=== PATIENT | female | born 1985 | race Asian ===

== ENCOUNTER 2020-08-23 23:46 | Emergency (ER) | payer MEDICAID ==
[~2020-08-23] VITALS: Ht 180.3 cm; Wt 188.7 kg
[2020-08-24] MEDS ORDERED: LABETALOL 5MG/ML, 20ML IVPush ONE
[2020-08-24] MEDS ORDERED: ENALAPRILAT 1.25 MG/ML, 2ML IV ONE
[2020-08-24] MEDS ORDERED: SODIUM CHLORIDE FLUSH 10ML SYR IVF ONE
[2020-08-24 00:27] LABS: BASOPHILS % (AUTO) 1 % (0-1); EOSINOPHILS % (AUTO) 2 % (1-7); LYMPHOCYTES % (AUTO) 33 % (22-44); MD NO; MEAN CORPUSCULAR HEMOGLOBIN 23.8 pg (27.0-34.8); MEAN CORPUSCULAR HGB CONC 31.4 g/dL (32.4-35.8); MEAN PLATELET VOLUME 7.8 fL (7.4-10.4); MONOCYTES % (AUTO) 6 % (2-9); NEUTROPHILS % (AUTO) 59 % (42-75); PLATELET COUNT 272 x10^3/uL (130-400); RED BLOOD COUNT 4.86 x10^6/uL (3.82-5.3)
[2020-08-24] MEDS ORDERED: ENALAPRILAT 1.25 MG/ML, 1ML ONE (00:27)
[2020-08-24] MEDS ORDERED: NITROGLYCERIN OINT 2%, 1GM TP ONE ×2 (00:27)
[2020-08-24] MEDS ORDERED: LABETALOL 5MG/ML, 20ML ONE (00:27)
[2020-08-24 00:29] LABS: ALANINE AMINOTRANSFERASE 26 U/L (12-78); ALBUMIN 3.3 g/dL (3.4-5.0); ANION GAP 6 mmol/L (5-15); CALCIUM 8.5 mg/dL (8.5-10.1); CHLORIDE 110 mmol/L (98-107); CREATININE 0.96 mg/dL (0.55-1.02)
[2020-08-24 00:34] LABS: ALKALINE PHOSPHATASE 70 U/L (45-117); BILIRUBIN,TOTAL 0.4 mg/dL (0.2-1.0); TOTAL PROTEIN 7.4 g/dL (6.4-8.2)
--- NOTE | 2020-08-24 00:38 | NUR ---
MEDICATED PER MAR
[2020-08-24] MEDS ORDERED: FUROSEMIDE 40 MG/4 ML IV ONE (01:00)
[2020-08-24] MEDS ORDERED: FUROSEMIDE 40 MG/4 ML ONE (01:13)
--- NOTE | 2020-08-24 01:48 | NUR ---
Patient/Caregiver given discharge instructions and they have confirmed that they understand the instructions. Patient ambulatory with steady gait.
[2020-08-24 02:01] VITALS: BP 160/101
== END 2020-08-24 02:03 | disposition home or self-care (01) ==
LOC: ED 08-24 00:23
DX: I11.0 Hypertensive heart disease with heart failure (principal); I50.9 Heart failure, unspecified; R06.00 Dyspnea, unspecified; R94.31 Abnormal electrocardiogram [ECG] [EKG]; F17.210 Nicotine dependence, cigarettes, uncomplicated
CPT/HCPCS: 36415; 71045; 80053; 83880; 84484; 84703; 85025; 93005; 96374; 96375; 99285; 99406; J1940

== ENCOUNTER 2020-10-13 07:35 | Inpatient (IN) | payer MEDICAID ==
[~2020-10-13] VITALS: Ht 177.8 cm; Wt 190.7 kg
--- NOTE | 2020-10-13 08:10 | NUR ---
PT PRESENTS TO ED WITH C/O SOB SINCE YESTERDAY AFTERNOON. PT DENIES CHEST PAIN BUT STATES THEY "FEEL HEAVY". PT A&O, RESPS EVEN AND SHALLOW, NADN. ERPA AT BEDSIDE FOR INITAL EVAL/ASSESSMENT.
--- NOTE | 2020-10-13 08:16 | NUR ---
XR AT BEDSIDE
[2020-10-13] MEDS ORDERED: SACUBITRIL/VALSARTAN 24MG-26MG TAB PO STA (08:30)
[2020-10-13 08:31] LABS: ALANINE AMINOTRANSFERASE 31 U/L (12-78); ANION GAP 5 mmol/L (5-15); BASOPHILS % (AUTO) 1 % (0-1); CALCIUM 8.8 mg/dL (8.5-10.1); CHLORIDE 108 mmol/L (98-107); CREATININE 0.94 mg/dL (0.55-1.02); EOSINOPHILS % (AUTO) 2 % (1-7); LYMPHOCYTES % (AUTO) 33 % (22-44); MEAN CORPUSCULAR HEMOGLOBIN 23.5 pg (27.0-34.8); MEAN CORPUSCULAR HGB CONC 31.2 g/dL (32.4-35.8); MEAN PLATELET VOLUME 8.1 fL (7.4-10.4); MONOCYTES % (AUTO) 7 % (2-9); NEUTROPHILS % (AUTO) 58 % (42-75); PLATELET COUNT 267 x10^3/uL (130-400); RED BLOOD COUNT 4.77 x10^6/uL (3.82-5.3); RED CELL DISTRIBUTION WIDTH 18.7 % (9.6-15.2)
[2020-10-13 08:33] LABS: ALKALINE PHOSPHATASE 67 U/L (45-117); BILIRUBIN,TOTAL 0.6 mg/dL (0.2-1.0); TROPONIN I 0.041 ng/mL (0.000-0.045)
--- NOTE | 2020-10-13 08:52 | NUR ---
pt medicated per order, tolerated well. manual bp taken, 210/130. clonidine patch applied to right upper arm. pt a&o, resps even and shallow, nadn.
[2020-10-13] MEDS ORDERED: cloniDINE 0.1MG PATCH TD SCH (09:00)
--- NOTE | 2020-10-13 09:34 | NUR ---
pt sleeping in bed, resps even, shallow, and labored, nadn.
[2020-10-13] MEDS ORDERED: hydrALAzine 20 MG/ML, 1ML ONE ×2 (10:28→11:46)
[2020-10-13] MEDS ORDERED: SODIUM CHLORIDE FLUSH 10ML SYR IVF ONE (10:30)
[2020-10-13] MEDS ORDERED: FUROSEMIDE 40 MG/4 ML IV ONE (10:30)
[2020-10-13] MEDS ORDERED: hydrALAzine 20 MG/ML, 1ML IV ONE ×2 (10:30→13:00)
--- NOTE | 2020-10-13 10:34 | NUR ---
TASK RN: PIV STARTED, PT MEDICATED PER EMAR. RESTING ON GURNEY W/ CALL LIGHT IN REACH AND FAMILY AT BEDSIDE. RESP EVEN AND UNLABORED, MUNIRA.
[2020-10-13] MEDS ORDERED: FUROSEMIDE 40 MG/4 ML ONE (10:37)
--- NOTE | 2020-10-13 10:47 | NUR ---
PT AMBULATORY TO BATHROOM WITH STEADY GAIT
--- NOTE | 2020-10-13 11:38 | NUR ---
Pt back from bathroom, resting in bed.
--- NOTE | 2020-10-13 11:41 | NUR ---
RON Arriola at bedside to discuss POC
[2020-10-13] MEDS ORDERED: CARV-39 PO (11:56)
--- NOTE | 2020-10-13 12:17 | NUR ---
hospitalist at bedside to discuss poc
[2020-10-13] MEDS ORDERED: ACETAMINOPHEN 325 MG TABLET PO PRN (12:30)
[2020-10-13] MEDS ORDERED: ENOXAPARIN 40 MG/0.4 ML SQ SCH (12:30)
[2020-10-13] MEDS ORDERED: BISACODYL 10 MG SUPP PR PRN (12:30)
[2020-10-13] MEDS ORDERED: hydrALAzine 20 MG/ML, 1ML IV PRN (13:00)
[2020-10-13] MEDS ORDERED: POTASSIUM CHLORIDE 20 MEQ TAB.ER.PRT PO SCH (13:00)
--- NOTE | 2020-10-13 13:34 | NUR ---
report given to receiving chantell Lundy
--- NOTE | 2020-10-13 14:15 | NUR ---
TASK RN: US AT BEDSIDE
[2020-10-13 15:00] VITALS: BP 167/128
[2020-10-13] MEDS: FUROSEMIDE 20 MG/2 ML IV SCH (18:24)
[2020-10-13] MEDS: SPIRONOLACTONE 25 MG TABLET PO SCH (18:25)
[2020-10-13 19:47] VITALS: BP 160/100
[2020-10-13] MEDS: SACUBITRIL/VALSARTAN 24MG-26MG TAB PO SCH (20:14)
[2020-10-13 20:27] LABS: TROPONIN I 0.021 ng/mL (0.000-0.045)
[2020-10-13 20:45] LABS: MICROSCOPIC NOT IND
[2020-10-13 20:58] LABS: AMPHETAMINE SCREEN, URINE Negative (Negative); BARBITURATE SCREEN, URINE Negative (Negative); BENZODIAZEPINE SCREEN, URINE Negative (Negative); CANNABINOID SCREEN, URINE Negative (Negative); COCAINE SCREEN, URINE Negative (Negative); METHADONE SCREEN, URINE Negative (Negative)
[2020-10-13 21:00] LABS: OPIATE SCREEN, URINE Negative (Negative)
[2020-10-14 01:28] VITALS: BP 156/91
[2020-10-14 05:31] LABS: BASOPHILS % (AUTO) 1 % (0-1); EOSINOPHILS % (AUTO) 3 % (1-7); LYMPHOCYTES % (AUTO) 34 % (22-44); MEAN CORPUSCULAR HEMOGLOBIN 23.1 pg (27.0-34.8); MEAN CORPUSCULAR HGB CONC 30.8 g/dL (32.4-35.8); MEAN PLATELET VOLUME 7.8 fL (7.4-10.4); MONOCYTES % (AUTO) 8 % (2-9); NEUTROPHILS % (AUTO) 55 % (42-75); PLATELET COUNT 256 x10^3/uL (130-400); RED BLOOD COUNT 5.33 x10^6/uL (3.82-5.3); RED CELL DISTRIBUTION WIDTH 18.4 % (9.6-15.2)
[2020-10-14 05:43] LABS: CHLORIDE 106 mmol/L (98-107)
[2020-10-14 06:02] LABS: ANION GAP 4 mmol/L (5-15); CALCIUM 8.8 mg/dL (8.5-10.1); CREATININE 0.89 mg/dL (0.55-1.02)
[2020-10-14 07:46] VITALS: BP 163/115
[2020-10-14] MEDS: SENNA/DOCUSATE TABLET PO SCH (08:19)
[2020-10-14] MEDS: POTASSIUM CHLORIDE 20 MEQ TAB.ER.PRT PO SCH (08:20)
[2020-10-14] MEDS: SPIRONOLACTONE 25 MG TABLET PO SCH ×2 (08:20→09:30)
[2020-10-14] MEDS: SACUBITRIL/VALSARTAN 24MG-26MG TAB PO SCH ×3 (08:20→20:31)
[2020-10-14] MEDS: FUROSEMIDE 20 MG/2 ML IV SCH ×2 (08:23→16:41)
[2020-10-14 09:23] VITALS: BP 152/88
[2020-10-14 10:43] LABS: IRON LEVEL 47 mcg/dL (50-170)
[2020-10-14 10:45] LABS: % IRON SATURATION 10 % (20-55); TOTAL IRON BINDING CAPACITY 471 mcg/dL (250-450)
[2020-10-14] MEDS ORDERED: SACUBITRIL/VALSARTAN 24MG-26MG TAB PO ONE (11:30)
[2020-10-14] MEDS ORDERED: SACUBITRIL/VALSARTAN 24MG-26MG TAB PO SCH (11:30)
[2020-10-14] MEDS: CARVEDILOL 6.25 MG TABLET PO SCH ×3 (11:33→22:07)
[2020-10-14] MEDS ORDERED: ENOXAPARIN 40 MG/0.4 ML SQ SCH (12:30)
[2020-10-14 13:36] VITALS: BP 150/94
[2020-10-14 19:01] VITALS: BP 145/96
[2020-10-15 00:55] VITALS: BP 151/90
[2020-10-15 05:52] VITALS: BP 152/100
[2020-10-15] MEDS: CARVEDILOL 6.25 MG TABLET PO SCH (05:55)
[2020-10-15 07:35] VITALS: BP 134/84
[2020-10-15] MEDS: FUROSEMIDE 20 MG/2 ML IV SCH (08:23)
[2020-10-15] MEDS: POTASSIUM CHLORIDE 20 MEQ TAB.ER.PRT PO SCH (08:23)
[2020-10-15] MEDS: SPIRONOLACTONE 25 MG TABLET PO SCH ×2 (08:24→09:00)
[2020-10-15] MEDS: SACUBITRIL/VALSARTAN 24MG-26MG TAB PO SCH (08:26)
[2020-10-15] MEDS: SENNA/DOCUSATE TABLET PO SCH (08:26)
[2020-10-15] MEDS ORDERED: IRON SUCROSE COMPLEX 100MG/5ML IV SCH (09:00)
[2020-10-15] MEDS ORDERED: FURO40TA6 PO (12:31)
[2020-10-15] MEDS ORDERED: SACU1TAB PO (12:31)
[2020-10-15] MEDS ORDERED: SPIR25TA PO (12:31)
[2020-10-15] MEDS ORDERED: CARV12.52 PO (12:31)
[2020-10-15] MEDS ORDERED: CARVEDILOL 12.5 MG TABLET PO SCH (18:00)
[2020-10-16] MEDS ORDERED: FUROSEMIDE 40 MG TABLET PO SCH (09:00)
== END 2020-10-15 14:17 | disposition home or self-care (01) | DRG 304 ==
LOC: ED 08:32 → EDIP 12:05 → 5SO 14:57 → DCLOUNGE 10-15 14:05
PROVIDERS: ADMIT Hospitalist; ATTEND Hospitalist
DX: I16.0 Hypertensive urgency (principal); I50.23 Acute on chronic systolic (congestive) heart failure; Q21.1 Atrial septal defect; I43 Cardiomyopathy in diseases classified elsewhere; I42.8 Other cardiomyopathies; Z68.44 Body mass index [BMI] 60.0-69.9, adult; D50.9 Iron deficiency anemia, unspecified; E66.01 Morbid (severe) obesity due to excess calories; I08.1 Rheumatic disorders of both mitral and tricuspid valves; R94.31 Abnormal electrocardiogram [ECG] [EKG]; I11.0 Hypertensive heart disease with heart failure; I27.20 Pulmonary hypertension, unspecified; Z82.49 Family history of ischemic heart disease and other diseases of the circulatory system; Z91.14 Patient's other noncompliance with medication regimen; Z91.19 Patient's noncompliance with other medical treatment and regimen; Z79.899 Other long term (current) drug therapy
CPT/HCPCS: 36415; 99291; C8929; 71045; 80048; 80053; 80307; 81003; 83540; 83550; 83735; 83880; 84443; 84484; 84703; 85025; 93005; G0378; J1756; J1940; Q9957; J0360

== ENCOUNTER 2020-10-26 15:53 | Emergency (ER) | payer MEDICAID ==
[~2020-10-26] VITALS: Ht 180.3 cm; Wt 184.6 kg
[~2020-10-26 15:53] MED LIST: CARV-39 PO; CARV12.52 PO; FURO40TA6 PO; SACU1TAB PO; SPIR25TA PO
[2020-10-26 15:56] VITALS: BP 179/97
[2020-10-26] MEDS ORDERED: HYDROmorphone 1 MG/ML, 1ML INJ IV ONE (16:30)
[2020-10-26] MEDS ORDERED: KETOROLAC 30 MG/1 ML IVPush ONE (16:30)
[2020-10-26] MEDS ORDERED: SODIUM CHLORIDE FLUSH 10ML SYR IVF ONE (16:30)
--- NOTE | 2020-10-26 16:40 | NUR ---
PT STRAIGHT CATHED FOR URINE SAMPLE. URINE WALKED TO LAB.
[2020-10-26 16:56] LABS: BASOPHILS % (AUTO) 1 % (0-1); EOSINOPHILS % (AUTO) 2 % (1-7); LYMPHOCYTES % (AUTO) 32 % (22-44); MEAN CORPUSCULAR HEMOGLOBIN 23.6 pg (27.0-34.8); MEAN CORPUSCULAR HGB CONC 30.8 g/dL (32.4-35.8); MEAN PLATELET VOLUME 8.1 fL (7.4-10.4); MONOCYTES % (AUTO) 7 % (2-9); NEUTROPHILS % (AUTO) 58 % (42-75); PLATELET COUNT 231 x10^3/uL (130-400); RED BLOOD COUNT 5.05 x10^6/uL (3.82-5.3); RED CELL DISTRIBUTION WIDTH 19.8 % (9.6-15.2)
[2020-10-26 17:02] LABS: ALBUMIN 3.2 g/dL (3.4-5.0); ANION GAP 4 mmol/L (5-15); CALCIUM 8.8 mg/dL (8.5-10.1); CHLORIDE 108 mmol/L (98-107)
[2020-10-26 17:09] LABS: ALANINE AMINOTRANSFERASE 23 U/L (12-78); ALKALINE PHOSPHATASE 62 U/L (45-117); BILIRUBIN,TOTAL 0.3 mg/dL (0.2-1.0); TOTAL PROTEIN 7.3 g/dL (6.4-8.2)
[2020-10-26 17:12] LABS: MICROSCOPIC NOT IND
--- NOTE | 2020-10-26 17:18 | NUR ---
PT IN CT
[2020-10-26] MEDS ORDERED: KETOROLAC 30 MG/1 ML ONE (17:55)
[2020-10-26] MEDS ORDERED: HYDROmorphone 1 MG/ML, 1ML INJ ONE (17:56)
--- NOTE | 2020-10-26 18:10 | NUR ---
unable to get IV x1. pt refused further placement attempts. erp okay with giving ordered meds IM.
[2020-10-26] MEDS ORDERED: HYDROmorphone 1 MG/ML, 1ML INJ IM ONE (18:30)
[2020-10-26] MEDS ORDERED: KETOROLAC 30 MG/1 ML IM ONE (18:30)
== END 2020-10-26 18:34 | disposition home or self-care (01) ==
LOC: ED 16:23
DX: M54.5 Low back pain (principal); R10.9 Unspecified abdominal pain; I10 Essential (primary) hypertension
CPT/HCPCS: 36415; 74176; 80053; 81003; 83690; 84703; 85025; 96372; 99284; J1885